=== PATIENT | male | born 1995 | race Caucasian/White ===

== ENCOUNTER 2016-06-30 20:11 | Emergency (ER) | payer OTHER ==
[2016-06-30 20:11] VITALS: BP 131/76; PULSE 91; RESP 16; TEMP 98.8; O2SAT 100
[~2016-06-30 20:11] MED LIST: SERT50 PO
--- NOTE | 2016-06-30 20:45 | PD ---
HPI Chief Complaint: Lump, Cyst, Hernia Time Seen by Provider: 20:45 Travel History International Travel<30 days: No Contact w/Intl Traveler<30days: No Traveled to known affect area: No History of Present Illness HPI 21-year-old male presents to emergency department for evaluation of a palpable lump in his groin area noticed approximately 4 months ago. Patient states it does not hurt. Denies any recent illnesses, fever, or chills. He states he does have cats in the house and has probably sustained several scratches. Denies any testicular lesions. No urinary symptoms. No pelvic or abdominal pain. He states he is otherwise healthy. He has no other symptoms to report. Patient states he does have a primary care provider through his mother's insurance he cannot think of the name of them right now History Past Medical Histgory Medical History: Denies Significant Hx Hx Cancer: No Social History Alcohol Use: No Tobacco Use: No Allergies-Medications (Allergen,Severity, Reaction): Coded Allergies: No Known Allergies (Verified , 06/30/16) Reported Meds & Prescriptions Reported Meds & Active Scripts Active Zoloft (Sertraline HCl) 50 Mg Tab 25 Mg PO DAILY Review of Systems Except as stated in HPI: all other systems reviewed are Neg Physical Exam Narrative GENERAL: Well-nourished, well-developed patient in no acute distress SKIN: Focused skin assessment warm/dry. HEAD: Normocephalic. EYES: No scleral icterus. No injection or drainage. NECK: Supple, trachea midline. No JVD or lymphadenopathy. CARDIOVASCULAR: Regular rate and rhythm without murmurs, gallops, or rubs. RESPIRATORY: Breath sounds equal bilaterally. No accessory muscle use. Abdomen: Abdomen soft, non-tender, nondistended. Positive bowel sounds. No hepato-splenomegaly, or palpable masses. No guarding. There is a 1 cm in diameter palpable, mobile lymph node in the right inguinal area. No erythema or edema. GENITOURINARY: Circumcised. Testes descended bilaterally without evidence of rotation. No lesions or erythema. No urethral discharge. MUSCULOSKELETAL: No cyanosis, or edema. BACK: Nontender without obvious deformity. No CVA tenderness. Data Data Last Documented VS Vital Signs Date Time Temp Pulse Resp B/P Pulse Ox O2 Delivery O2 Flow Rate FiO2 06/30/16 20:11 98.8 91 16 131/76 100 Room Air MDM Medical Screen Exam Complete: Yes Emergency Medical Condition: No Differential Diagnosis Inguinal lymphadenopathy versus cat scratch disease versus local reaction versus cancer Narrative Course 21-year-old male presents to the emergency department for evaluation of a palpable lymph node in his right inguinal chain. H otherwise appears well. There is a palpable 1 cm diameter, mobile lymph node noted in this area. Testicular exam is completely benign at this time. I discussed in depth the possible etiologies of this from very benign to very serious to include cancer. He states that he does have a primary care provider and he can follow-up with outpatient. I advised that he call tomorrow which is Friday to schedule an appointment for further evaluation of this. He verbalizes understanding and agrees to follow through with this plan of care. He agrees to return immediately with any acute worsening of symptoms. A medical screening exam was performed: At the time of evaluation the presenting medical condition was determined not to be of an emergent nature. The patient was given the option of receiving additional care, but declined. Patient was given options for additional community resources from which to obtain care. The Patient Has Been advised to seek medical attention for their presenting complaint. The patient has been advised to return to the ER at any time if an emergent condition develops. Primary Impression: Inguinal lymphadenopathy Additional Impression: Encounter for medical screening examination Condition: Stable Anisa Boyle June 30, 2016 20:45
== END 2016-06-30 20:56 | disposition left against medical advice (07) ==
LOC: NEPK 20:11
DX: R59.1 Generalized enlarged lymph nodes (principal)
CPT/HCPCS: 99281

== ENCOUNTER 2017-06-13 09:41 | Inpatient (IN) | payer OTHER ==
[~2017-06-13] VITALS: Ht 172.7 cm; Wt 47.9 kg
[2017-06-13 09:45] VITALS: BP 115/62; PULSE 92; RESP 16; TEMP 97.6; O2SAT 99
--- NOTE | 2017-06-13 10:04 | PD ---
HPI Chief Complaint: Psychiatric Symptoms Time Seen by Provider: 09:50 Travel History International Travel<30 days: No Contact w/Intl Traveler<30days: No Traveled to known affect area: No History of Present Illness HPI 22-year-old male complains of suicide ideation including a plan to inhale helium and attempt to without experience of pain. He reports anxiety attacks. He reports drinking alcohol and using cocaine. Most recent polysubstance abuse was last night. He denies drug abuse otherwise. He reports a history of major depression previously with a suicide attempt including walking to a bridge to jump off of it where he was interrupted. He has no physical complaint. Timing constant. PFSH Past Medical History ADHD: No Depression: Yes Cancer: No Cardiovascular Problems: No Diabetes: No Diminished Hearing: No Endocrine: No Genitourinary: No Headaches: No Hepatitis: No Hiatal Hernia: No Immune Disorder: No Musculoskeletal: No Neurologic: No Psychiatric: Yes (HBS 2013) Reproductive: No Respiratory: No Immunizations Current: Yes Migraines: Yes (OCCASSIONALLY--ADVIL PRN) Seizures: No Thyroid Disease: No Ulcer: No Past Surgical History Joint Replacement: No Oral Surgery: Yes (GUM SURGERY "YEARS AGO") Pacemaker: No Social History Alcohol Use: No Tobacco Use: No Substance Use: Yes (ADMITS TO SMOKING POT YESTERDAY.) Allergies-Medications (Allergen,Severity, Reaction): Coded Allergies: No Known Allergies (Verified Adverse Reaction, Unknown, 06/13/17) Reported Meds & Prescriptions Reported Meds & Active Scripts Active Zoloft (Sertraline HCl) 50 Mg Tab 25 Mg PO DAILY Review of Systems Except as stated in HPI: all other systems reviewed are Neg General / Constitutional: No: Fever Physical Exam Narrative GENERAL: 22 yo M, WNWD, NAD, cooperative Vital Signs Date Time Temp Pulse Resp B/P (MAP) Pulse Ox O2 Delivery O2 Flow Rate FiO2 06/13/17 09:45 97.6 92 16 115/62 (79) 99 SKIN: Warm and dry. HEAD: Atraumatic. Normocephalic. EYES: Pupils equal and round. No scleral icterus. No injection or drainage. ENT: No nasal bleeding or discharge. Mucous membranes pink and moist. NECK: Trachea midline. No JVD. CARDIOVASCULAR: Regular rate and rhythm. RESPIRATORY: No accessory muscle use. Clear to auscultation. Breath sounds equal bilaterally. GASTROINTESTINAL: Abdomen soft, non-tender, nondistended. Hepatic and splenic margins not palpable. MUSCULOSKELETAL: Extremities without clubbing, cyanosis, or edema. No obvious deformities. NEUROLOGICAL: Awake and alert. No obvious cranial nerve deficits. Motor grossly within normal limits. Five out of 5 muscle strength in the arms and legs. Normal speech. PSYCHIATRIC: Patient reports suicidal ideation. Positive polysubstance abuse. Data Data Last Documented VS Vital Signs Date Time Temp Pulse Resp B/P (MAP) Pulse Ox O2 Delivery O2 Flow Rate FiO2 06/13/17 10:25 16 06/13/17 09:45 97.6 92 115/62 (79) 99 Orders Orders Complete Blood Count With Diff (06/13/17 09:55) Comprehensive Metabolic Panel (06/13/17 09:55) Thyroid Stimulating Hormone (06/13/17 09:55) Psych Screen (06/13/17 09:55) Drug Screen, Random Urine (06/13/17 09:55) Alcohol (Ethanol) (06/13/17 09:55) Salicylates (Aspirin) (06/13/17 09:55) Tylenol (Acetaminophen) (06/13/17 09:55) Labs Laboratory Tests Test 06/13/17 10:15 White Blood Count 9.9 TH/MM3 Red Blood Count 4.75 MIL/MM3 Hemoglobin 14.0 GM/DL Hematocrit 40.0 % Mean Corpuscular Volume 84.1 FL Mean Corpuscular Hemoglobin 29.5 PG Mean Corpuscular Hemoglobin Concent 35.0 % Red Cell Distribution Width 13.4 % Platelet Count 233 TH/MM3 Mean Platelet Volume 7.5 FL Neutrophils (%) (Auto) 71.9 % Lymphocytes (%) (Auto) 19.2 % Monocytes (%) (Auto) 6.5 % Eosinophils (%) (Auto) 2.1 % Basophils (%) (Auto) 0.3 % Neutrophils # (Auto) 7.1 TH/MM3 Lymphocytes # (Auto) 1.9 TH/MM3 Monocytes # (Auto) 0.6 TH/MM3 Eosinophils # (Auto) 0.2 TH/MM3 Basophils # (Auto) 0.0 TH/MM3 CBC Comment DIFF FINAL Differential Comment Blood Urea Nitrogen 7 MG/DL Creatinine 1.01 MG/DL Random Glucose 94 MG/DL Total Protein 7.2 GM/DL Albumin 3.9 GM/DL Calcium Level 8.8 MG/DL Alkaline Phosphatase 79 U/L Aspartate Amino Transf (AST/SGOT) 22 U/L Alanine Aminotransferase (ALT/SGPT) 17 U/L Total Bilirubin 0.8 MG/DL Sodium Level 141 MEQ/L Potassium Level 3.7 MEQ/L Chloride Level 106 MEQ/L Carbon Dioxide Level 24.2 MEQ/L Anion Gap 11 MEQ/L Estimat Glomerular Filtration Rate 93 ML/MIN Thyroid Stimulating Hormone 3rd Gen 2.580 uIU/ML Salicylates Level LESS THAN 1.7 MG/DL Urine Opiates Screen NEG Acetaminophen Level LESS THAN 2.0 MCG/ML Urine Barbiturates Screen NEG Urine Amphetamines Screen NEG Urine Benzodiazepines Screen NEG Urine Cocaine Screen POS Urine Cannabinoids Screen NEG Ethyl Alcohol Level LESS THAN 3 MG/DL MDM Medical Decision Making Medical Screen Exam Complete: Yes Emergency Medical Condition: Yes Medical Record Reviewed: Yes Differential Diagnosis Altered mental status/psychosis due to infection/environmental exposure/ metabolic abnormality, polypharmacy, alcohol abuse/intoxication, illicit or prescribed drug abuse, malingering/secondary gain, non-organic psychiatric disease Narrative Course CBC & BMP Diagram 06/13/17 10:15 Total Protein 7.2, Albumin 3.9, Calcium Level 8.8, Alkaline Phosphatase 79, Aspartate Amino Transf (AST/SGOT) 22, Alanine Aminotransferase (ALT/SGPT) 17, Total Bilirubin 0.8 Tox screen positive for cocaine Ruiz Act completed by the undersigned because the patient has suicidal ideation with a plan and has a history of suicide attempt. It seems obvious that if the patient were to stop drinking alcohol and cocaine he would not experience depressed mood like he is however at the moment he has a suicidal plan and the ability to execute it. Diagnosis Primary Impression: Suicidal ideation Additional Impressions: Cocaine abuse Alcohol abuse Planning to commit suicide Admitting Information Admitting Physician Requests: Observation Holden Rodriguez MD June 13, 2017 10:04
[2017-06-13 10:32] LABS: AUTOMATED NEUTROPHIL # 7.1 TH/MM3 (1.8-7.7); BASOPHIL % 0.3 % (0.0-2.0); EOSINOPHIL # 0.2 TH/MM3 (0-0.4); EOSINOPHIL % 2.1 % (0.0-4.0); LYMPH % 19.2 % (9.0-44.0); LYMPHOCYTE # 1.9 TH/MM3 (1.0-4.8); MEAN CELL VOLUME 84.1 FL (80.0-100.0); MEAN CORPUSCULAR HEMOGLOBIN 29.5 PG (27.0-34.0); MEAN PLATELET VOLUME 7.5 FL (7.0-11.0); MONO % 6.5 % (0.0-8.0); MONOCYTE # 0.6 TH/MM3 (0-0.9); NEUT % 71.9 % (16.0-70.0); PLATELET COUNT 233 TH/MM3 (150-450); RED BLOOD COUNT 4.75 MIL/MM3 (4.50-5.90); RED CELL DISTRIBUTION WIDTH 13.4 % (11.6-17.2); WHITE BLOOD COUNT 9.9 TH/MM3 (4.0-11.0)
[2017-06-13 11:02] LABS: ACETAMINOPHEN LESS THAN 2.0 MCG/ML (10.0-30.0); ALBUMIN 3.9 GM/DL (3.4-5.0); ALT (GPT) 17 U/L (12-78); AST (GOT) 22 U/L (15-37); BICARBONATE 24.2 MEQ/L (21.0-32.0); BLOOD UREA NITROGEN 7 MG/DL (7-18); CALCIUM 8.8 MG/DL (8.5-10.1); CHLORIDE 106 MEQ/L (98-107); CREATININE 1.01 MG/DL (0.60-1.30); GLOMERULAR FILTRATION RATE 93 ML/MIN (>89); GLUCOSE,RANDOM 94 MG/DL (74-106); SODIUM (NA) 141 MEQ/L (136-145)
[2017-06-13 11:08] LABS: ALKALINE PHOSPHATASE 79 U/L (45-117); TOTAL BILIRUBIN ADULT 0.8 MG/DL (0.2-1.0); TOTAL PROTEIN 7.2 GM/DL (6.4-8.2)
[2017-06-13 12:18] VITALS: BP 114/80; PULSE 63; RESP 18; TEMP 97.5; O2SAT 99
[2017-06-13] MEDS ORDERED: ALUMINUM/MAGNESIUM/SIMETH 30 ML CUP PO PRN (17:00)
[2017-06-13] MEDS ORDERED: ACETAMINOPHEN 325 MG TAB PO PRN (17:00)
[2017-06-13] MEDS ORDERED: MAGNESIUM HYDROXIDE SUSP 30 ML CUP PO PRN (17:00)
[2017-06-13] MEDS ORDERED: diphenhydrAMINE HCL 50 MG CAP PO PRN (17:00)
[2017-06-13 18:38] VITALS: BP 113/73; PULSE 56; RESP 18; TEMP 97.5; O2SAT 97
[2017-06-13] MEDS: NICOTINE 21 MG/24 HR PATCH T-DERMAL PRN (20:06)
[2017-06-13] MEDS: REMOVE OLD NICODERM (NICOTINE) PATCH T-DERMAL SCH (21:00)
[2017-06-14 06:49] VITALS: BP 106/59; PULSE 68; RESP 16; TEMP 97.7; O2SAT 97
[2017-06-14 09:57] LABS: CHOLESTEROL 100 MG/DL (120-200)
[2017-06-14 10:09] LABS: CHOLESTEROL/ HDL RATIO 1.98 RATIO; HDL CHOLESTEROL 50.3 MG/DL (40.0-60.0); LDL CHOLESTEROL 30 MG/DL (0-99); TRIGLYCERIDES 98 MG/DL (42-150)
[2017-06-14] MEDS ORDERED: hydrOXYzine HCL 50 MG TAB PO PRN (11:15)
[2017-06-14] MEDS ORDERED: diphenhydrAMINE HCL 50 MG CAP PO PRN (11:15)
[2017-06-14] MEDS: ARIPiprazole 5 MG TAB PO SCH (11:47)
--- NOTE | 2017-06-14 12:00 | HHI.HP ---
Provisional Diagnosis Admission Date June 13, 2017 at 16:51 [place] I. Major depressive disorder recurrent severe without psychosis, cocaine abuse, history of alcohol and multiple drug abuse Certification of Person's Competence To Provide Express and Informed Consent I have personally examined Amandeep Lynch , a person being served at [facility] on, June 14, 2017 11:08. Express and informed consent means consent voluntarily given in writing, by a competent person, after sufficient explanation and disclosure of the subject matter involved to enable the person to make a knowing and willful decision without any element of force, fraud, deceit, duress, or other form of constraint or coercion. This person is 18 years of age or older, is not now known to be incompetent to consent to treatment with a guardian advocate, and does not have a health care surrogate or proxy currently making medical treatment decisions. I have found this person to be one of the following: [] Competent to provide express and informed consent, as defined above, for voluntary admission to this facility and is competent to provide express and informed consent for treatment. He/she has the consistent capacity to make well reasoned, willful, and knowing decisions concerning his or her medical or mental health treatment. The person fully and consistently understands the purpose of the admission for examination/placement and is fully capable of personally exercising all rights [place] Incompetent to provide express and informed consent to voluntary admission, and this is incompetent to provide express and informed consent to treatment. The person must be transferred to involuntary status and a petition for a guardian advocate filed with the Circuit Court. []xxxx Refusing to provide express and informed consent to voluntary admission but is competent to provide express and informed consent for treatment. The person must be discharged or transferred to involuntary status. Form shall be completed within 24 hours of a person's arrival at the receiving facility and filed in the clinical record of each person: 1. Admitted on a voluntary basis 2. Permitted to provide express and informed consent to his/her own treatment 3. Allowed to transfer from involuntary to voluntary status 4. Prior to permitting a person to consent to his or her own treatment after having been previously found incompetent to consent to treatment. History of Present Illness Capacity: Lacks Capacity (Patient lacks capacity to sign for hospitalization, patient has capacity to sign for medications and treatment) Psych Chief Complaint: Impression with suicidal ideation intent and plan HPI Patient is a 22-year-old white male comes to the emergency department with a history of suicidal ideation and plan polysubstance abuse, Ruiz acted in the emergency department by Dr. Rodriguez dated June 13, 2017 at 10:04 AM this document reviewed and agreed with. Patient seen and screened in the ED urine toxicology positive for cocaine, alcohol Tylenol and aspirin levels negligible. Review of EMR shows patient was hospitalized twice as a teenager and HBS once in 2011 once in 2014 for depression and suicidal ideation and also substance abuse at that time. At the present time patient sitting quietly in his room, nurse Nessa present throughout session patient is a thin slight slender white male who appears his stated age with fairly thick short cut dark hair. Patient states she has had increased depression over the past month or so. He had been living with his grandparents. His grandfather in April fairly suddenly, his grandmother is becoming quite debilitated to the point where she is now in a [place] facility and he is living by himself and his grandparents home with his PET Monica. Patient states increased depression with occasional panic type attacks with initial and middle and late insomnia, a.m. energy, with decreased energy, though vague crying spells, his appetite is poor though he denies any significant weight loss. He is somewhat anhedonic. There is increased social isolation, decreased concentration and attention, increased irritability and short temperedness. While he denies voices or visions he states is marked increased paranoia especially around strangers. He acknowledges increased use of alcohol and cocaine with past few weeks cocaine use essentially daily. He acknowledges polysubstance abuse in the past partying with friends. He denies any prior detox or rehab or legal issues related to drugs. He denies any past physical or sexual abuse. Of interest he states his mother and father were never he is only now having a relationship with his father. With his father he has been twice subsequent to him and his children by those 2 marriages, and his mother's side his mother was prior to she having him the child by that marriage and she has been after him the child by that marriage. Patient has graduated high school and is not working at [employer]. He has dated girls in the past but not dating anyone now. When asked to take the suicide prole if offered he stated he would take the suicide pill that his suicide plan was to put a bag over his head and inhale helium. Patient states he has been also diagnosed with ulcerative colitis At this time patient does not meet criteria for acute inpatient psychiatric hospitalization of the Ruiz act L the first appointment request second opinion. We will start patient on Remeron 15 mg at at bedtime and Abilify 5 mg in the morning. Need to discuss with this young man perhaps placement, some type of rehab or sober living facility for him. Review of Systems Constitutional: DENIES: Diaphoretic episodes, Fatigue, Fever, Weight gain, Weight loss, Chills, Dizziness, Change in appetite, Night Sweats Endocrine: DENIES: Heat/cold intolerance, Polydipsia, Polyuria, Polyphagia Eyes: DENIES: Blurred vision, Diplopia, Eye inflammation, Eye pain, Vision loss , Photosensitivity, Double Vision Ears, nose, mouth, throat: DENIES: Tinnitus, Hearing loss, Vertigo, Nasal discharge, Oral lesions, Throat pain, Hoarseness, Ear Pain, Running Nose, Epistaxis, Sinus Pain, Toothache, Odynophagia Respiratory: DENIES: Apneas, Cough, Snoring, Wheezing, Hemoptysis, Sputum production, Shortness of breath Cardiovascular: DENIES: Chest pain, Palpitations, Syncope, Dyspnea on Exertion , PND, Lower Extremity Edema, Orthopnea, Claudication Gastrointestinal: DENIES: Abdominal pain, Black stools, Bloody stools, Constipation, Diarrhea, Nausea, Vomiting, Difficulty Swallowing, Anorexia Genitourinary: DENIES: Sexual dysfunction, Urinary frequency, Urinary incontinence, Urgency, Hematuria, Dysuria, Nocturia, Penile Discharge, Testicular Pain, Testicular Swelling Musculoskeletal: DENIES: Joint pain, Muscle aches, Stiffness, Joint Swelling, Back pain, Neck pain Integumentary: DENIES: Abnormal pigmentation, Nail changes, Pruritus, Rash Hematologic/lymphatic: DENIES: Bruising, Lymphadenopathy Immunologic/allergic: DENIES: Eczema, Urticaria Neurologic: DENIES: Abnormal gait, Headache, Localized weakness, Paresthesias, Seizures, Speech Problems, Tremor, Poor Balance Psychiatric: COMPLAINS OF: Anxiety, Depression, Suicidal Ideation Past Psych History Psychological trauma history Recent of patient's grandfather, and placement of grandmother in a facility otherwise patient denies physical or sexual abuse Violence risk - others (6 mos) Low Violence risk - self (6 mos) High Substance Abuse History Drugs/Alcohol past 12 months Patient states recent increased use of alcohol and cocaine past use of marijuana and other drugs Past Family Social History Coded Allergies: No Known Allergies (Verified Allergy, Unknown, 06/13/17) Discontinued Scripts Sertraline Hcl (Zoloft) 50 Mg Tab, 25 MG PO DAILY for Depression Control, #10 TAB 1 Refill Prov:Sean Contreras MD 12/16/14 Current Medications Medications (Trade) Dose Ordered Sig/Tavon Route Start Time Stop Time Status Last Admin (Benadryl) 50 mg HS PRN PO 06/13/17 17:00 (Tylenol) 650 mg Q4H PRN PO 06/13/17 17:00 (Milk Of Magnesia Liq) 30 ml DAILY PRN PO 06/13/17 17:00 06/13/17 20:05 (Mag-Al Plus Susp Liq) 30 ml Q6H PRN PO 06/13/17 17:00 (Habitrol 21 Mg Patch.24 Hr) 1 patch DAILY PRN T-DERMAL 06/13/17 17:00 06/13/17 20:06 Miscellaneous Information 1 HS T-DERMAL 06/13/17 21:00 (Remeron) 15 mg HS PO 06/14/17 21:00 UNV (Abilify) 5 mg DAILY PO 06/14/17 11:00 UNV Family Psych History Patient denies Social History Patient living in grandparents house by himself with his pet dog, states he has had girlfriends in the past, and does socialize with a few friends Patient's Strengths (min. 2) Patient verbal able access healthcare is cooperative Physical Exam Patient medically cleared in the ED at the present time patient sitting quietly in his room is in no acute distress, is in no respiratory distress, no complaints of abdominal pain at this time, patient moving all 4 extremities without difficulty no abnormal motor movements noted Vital Signs Vital Signs Date Time Temp Pulse Resp B/P (MAP) Pulse Ox O2 Delivery O2 Flow Rate FiO2 06/14/17 06:49 97.7 68 16 106/59 (75) 97 06/13/17 12:18 Room Air I/O 06/14/17 06/14/17 06/15/17 08:00 16:00 00:00 Intake Total 240 ml Balance 240 ml Lab Results Test 06/14/17 09:15 Triglycerides Level 98 MG/DL Cholesterol Level 100 MG/DL LDL Cholesterol 30 MG/DL HDL Cholesterol 50.3 MG/DL Cholesterol/HDL Ratio 1.98 RATIO Mental Status Examination Appearance: Appropriate Consciousness: Alert Orientation: x4 Motor Activity: Normal gait Speech: Unremarkable Language: Adequate Fund of Knowledge: Adequate Attention and Concentration: Adequate Memory: Unremarkable Mood: Appropriate Affect: Appropriate Thought Process & Associations: Intact Thought Content: Appropriate Hallucination Type: None Delusion Type: Paranoid (Mildly paranoid around strangers but not to a delusional intensity) Suicidal Ideation: Yes Suicidal Plan: Yes (Patient states he would take the suicide pill) Suicidal Intention: Yes (Patient states to take the suicide pill) Homicidal Ideation: No Homicidal Plan: No Homicidal Intention: No Insight: Fair Judgment: Impulsive Assessment & Plan Problem List: (1) History of polysubstance abuse (2) Major depressive disorder, recurrent severe without psychotic features ICD Codes: F33.2 - Major depressive disorder, recurrent severe without psychotic features (3) Cocaine abuse ICD Codes: F14.10 - Cocaine abuse, uncomplicated Status: Acute (4) Alcohol abuse ICD Codes: F10.10 - Alcohol abuse, uncomplicated Status: Acute Assessment & Plan Estimated LOS 5-7: days patient meets criteria for involuntary psychiatric hospitalization the Ruiz act all the first opinion request second opinion. I feel he does have capacity signed for medication and treatment. We will start patient on Remeron 15 mg at bedtime and Abilify 5 mg in the morning. We will also work on placement issues also taking into consideration his polysubstance abuse history Discharge Planning To be determined Request HC Surrog/Guard Advoc?: No Preet Soriano MD June 14, 2017 12:00
--- NOTE | 2017-06-14 13:36 | PD.CONS ---
HPI Service [facility] Hospitalists Consult Requested By Dr. Preet Soriano Reason for Consult Medical management Primary Care Physician Dr. Roger Hughes Diagnoses: History of Present Illness Mr. Lynch is a 22 y/o WM with hx of depression and polysubstance able. Pt was admitted under Ruiz Act to the inpatient psychiatry unit for suicidal ideation. The pt reports that he has been depressed more so lately since the of his grandfather and the failing tyra of his grandmother whom he lived with. He has been drinking daily and snorting cocaine every day for the past few weeks. He states that he has been having some panic attacks lately and has been considering suicide. He states that he had planning on using helium to kill himself. The pt is currently without any physical complaints. Denies any nausea/vomiting, abd pain, chest pain, diarrhea, constipation, SOB, palpitations , dizziness, headache, weakness or urinary issues. Review of Systems Constitutional: DENIES: Fever, Chills, Dizziness Respiratory: DENIES: Cough, Shortness of breath Cardiovascular: DENIES: Chest pain Gastrointestinal: DENIES: Abdominal pain, Constipation, Diarrhea, Nausea, Vomiting Genitourinary: DENIES: Urgency, Hematuria, Dysuria Integumentary: DENIES: Rash Neurologic: DENIES: Headache Psychiatric: COMPLAINS OF: Depression, Suicidal Ideation, DENIES: Confusion Past Family Social History Past Medical History Depression Polysubstance abuse Past Surgical History Nasal deviated septum repair Reported Medications No home meds Allergies: Coded Allergies: No Known Allergies (Verified Allergy, Unknown, 06/13/17) Family History Noncontributory Social History (+)Alcohol use (+)Cocaine and marijuana use Pt states that he used to smoke but no longer does Physical Exam Vital Signs Vital Signs Date Time Temp Pulse Resp B/P (MAP) Pulse Ox O2 Delivery O2 Flow Rate FiO2 06/14/17 06:49 97.7 68 16 106/59 (75) 97 06/13/17 18:38 97.5 56 18 113/73 (86) 97 06/13/17 17:52 Physical Exam GENERAL: This is a well-nourished, well-developed patient, in no apparent distress. SKIN: No rashes, ecchymoses or lesions. Cool and dry. HEENT: Atraumatic. Normocephalic. No temporal or scalp tenderness. No scleral icterus. Airway patent. NECK: Trachea midline, supple, nontender. CARDIO: Regular. RESP: CTA bilaterally. No wheezes, rales, or rhonchi. ABD: +BS, soft, non-tender, nondistended. No hepato-splenomegaly, or palpable masses. No guarding. EXT: Extremities without clubbing, cyanosis, or edema. NEURO: Awake and alert. Motor and sensory grossly within normal limits. Normal speech. Laboratory Laboratory Tests Test 06/14/17 09:15 Triglycerides Level 98 Cholesterol Level 100 LDL Cholesterol 30 HDL Cholesterol 50.3 Cholesterol/HDL Ratio 1.98 Result Diagram: 06/13/17 1015 06/13/17 1015 Assessment and Plan Problem List: (1) Major depressive disorder, recurrent severe without psychotic features ICD Codes: F33.2 - Major depressive disorder, recurrent severe without psychotic features Status: Chronic Plan: Major Depression Suicidal ideation Polysubstance abuse - Pt is a 22 y/o male with depression and polysubstance abuse who was admitted to [facility] Psych under Ruiz Act for suicidal ideation - Pt has been started on Abilify and Remeron - Discussed alcohol and substance abuse cessation. - Substance and alcohol abuse counseling. - No reported hx of withdrawal symptoms/DTs - Management per Psychiatry (2) Suicidal ideation ICD Codes: R45.851 - Suicidal ideations Status: Acute (3) Cocaine abuse ICD Codes: F14.10 - Cocaine abuse, uncomplicated Status: Acute (4) Alcohol abuse ICD Codes: F10.10 - Alcohol abuse, uncomplicated Status: Acute Brittnee Zapata June 14, 2017 13:36 Cuong Montemayor MD June 14, 2017 17:33
[2017-06-14 18:31] VITALS: BP 112/63; PULSE 81; RESP 16; TEMP 98.1; O2SAT 98
[2017-06-14] MEDS: REMOVE OLD NICODERM (NICOTINE) PATCH T-DERMAL SCH (21:00)
[2017-06-14] MEDS: MIRTAZAPINE 15 MG TAB PO SCH (22:05)
[2017-06-15 05:39] VITALS: BP 110/68; PULSE 75; RESP 16; TEMP 97.5; O2SAT 96
[2017-06-15] MEDS: ARIPiprazole 5 MG TAB PO SCH (08:56)
[2017-06-15 12:52] LABS: HEMOGLOBIN A1C 4.9 % (4.3-6.0)
--- NOTE | 2017-06-15 13:34 | HHI.PYPN ---
Subjective Chief Complaint: Impression with suicidal ideation intent and plan Remarks This is a request for second opinion. Admission note was reviewed and I agree with the history. Patient was seen and case was discussed with nursing. Patient is feeling sleepy secondary to the Remeron. We spoke about his drug use and he says he wants to stop after he leaves the hospital. Affect is quite flat. He remains depressed but denies suicidal ideation intent or plan. Largely seclusive to self Mental Status Examination Appearance: Appropriate Consciousness: Alert Orientation: x4 Motor Activity: Normal gait Speech: Unremarkable Language: Adequate Fund of Knowledge: Adequate Attention and Concentration: Adequate Memory: Unremarkable Mood: Appropriate Affect: Appropriate Thought Process & Associations: Intact Thought Content: Appropriate Hallucination Type: None Delusion Type: Paranoid (Mildly paranoid around strangers but not to a delusional intensity) Suicidal Ideation: No Suicidal Plan: No Suicidal Intention: No Homicidal Ideation: No Homicidal Plan: No Homicidal Intention: No Insight: Fair Judgment: Impulsive Results Vitals/IOs Vital Signs Date Time Temp Pulse Resp B/P (MAP) Pulse Ox O2 Delivery O2 Flow Rate FiO2 06/15/17 05:39 97.5 75 16 110/68 (82) 96 06/13/17 12:18 Room Air Assessment & Plan Problem List: (1) History of polysubstance abuse (2) Major depressive disorder, recurrent severe without psychotic features ICD Codes: F33.2 - Major depressive disorder, recurrent severe without psychotic features Status: Chronic (3) Cocaine abuse ICD Codes: F14.10 - Cocaine abuse, uncomplicated Status: Acute (4) Alcohol abuse ICD Codes: F10.10 - Alcohol abuse, uncomplicated Status: Acute Assessment & Plan I agree with the first opinion to continue petition. Criteria include suicidal ideation with plan Justification for Cont. Inpt. Patient would decompensate in a less restrictive setting Request HC Surrog/Guard Advoc?: No Jomar Sprague DO June 15, 2017 13:34
[2017-06-15 17:59] VITALS: BP 110/64; PULSE 78; RESP 16; TEMP 98; O2SAT 98
[2017-06-15] MEDS: REMOVE OLD NICODERM (NICOTINE) PATCH T-DERMAL SCH (21:00)
[2017-06-15] MEDS: MIRTAZAPINE 15 MG TAB PO SCH (21:09)
[2017-06-16 05:48] VITALS: BP 114/73; PULSE 72; RESP 16; TEMP 97.7; O2SAT 97
[2017-06-16] MEDS: ARIPiprazole 5 MG TAB PO SCH (09:35)
--- NOTE | 2017-06-16 13:42 | HHI.PYPN ---
Subjective Chief Complaint: Impression with suicidal ideation intent and plan Remarks Patient is seen in his room with nurse Shanique, chart reviewed, patient compliant medications, patient discussed with nurse. Patient continues depressed stating he will would still take the suicide pill of offered him today. He states he talked with both his mother and father last night. He states his mother would like the hospital [facility]. Father states that he would like to make things better before he is discharged. Patient states he slept better last night he has some increased focus. He so wishes to discuss the possibility of a sober living rehab or hair for a type house. When the counselor Amandeep meet with him. Review of Systems Except as stated in HPI: all other systems reviewed are Neg Mental Status Examination Appearance: Appropriate Consciousness: Alert Orientation: x4 Motor Activity: Normal gait Speech: Unremarkable Language: Adequate Fund of Knowledge: Adequate Attention and Concentration: Adequate Memory: Unremarkable Mood: Appropriate Affect: Appropriate Thought Process & Associations: Intact Thought Content: Appropriate Hallucination Type: None Delusion Type: Paranoid (Mildly paranoid around strangers but not to a delusional intensity) Suicidal Ideation: No Suicidal Plan: No Suicidal Intention: No Homicidal Ideation: No Homicidal Plan: No Homicidal Intention: No Insight: Fair Judgment: Impulsive Results Vitals/IOs Vital Signs Date Time Temp Pulse Resp B/P (MAP) Pulse Ox O2 Delivery O2 Flow Rate FiO2 06/16/17 05:48 97.7 72 16 114/73 (87) 97 06/13/17 12:18 Room Air Intake and Output 06/16/17 06/16/17 06/16/17 07:59 15:59 23:59 Intake Total 120 ml Balance 120 ml Assessment & Plan Problem List: (1) History of polysubstance abuse (2) Major depressive disorder, recurrent severe without psychotic features ICD Codes: F33.2 - Major depressive disorder, recurrent severe without psychotic features Status: Chronic (3) Cocaine abuse ICD Codes: F14.10 - Cocaine abuse, uncomplicated Status: Acute (4) Alcohol abuse ICD Codes: F10.10 - Alcohol abuse, uncomplicated Status: Acute Assessment & Plan Estimated LOS: days patient remains depressed with suicidal ideation and intent , would take the suicide pill daily. Though his affect is slightly improved. He continues to be willing to consider assisted living situation or sober living situation for now continue treatment no change Justification for Cont. Inpt. At this time patient would decompensate if placed in a lower level of care Discharge Planning To be determined Request HC Surrog/Guard Advoc?: No Preet Soriano MD June 16, 2017 13:42
--- NOTE | 2017-06-16 15:36 | PD.TTN ---
Patient Problems 1. Discharge planning 2. Medication compliance 3. Knowledge deficit 4. Lack of coping skills Progress Toward Goals Provider Present: Dr. Maye Soriano Group Spec/RT/OT/[place] Present: MIN Santoro (06/16/17- Pt. was cooperative and pleasant during groups.) Tristan Gauthier June 16, 2017 15:36
[2017-06-16 18:29] VITALS: BP 119/64; PULSE 78; RESP 18; TEMP 97.9; O2SAT 99
[2017-06-16] MEDS: REMOVE OLD NICODERM (NICOTINE) PATCH T-DERMAL SCH (21:00)
[2017-06-16] MEDS: MIRTAZAPINE 15 MG TAB PO SCH (21:11)
[2017-06-16] MEDS: NICOTINE 21 MG/24 HR PATCH T-DERMAL PRN (21:35)
[2017-06-17 04:00] VITALS: BP 113/59; PULSE 73; RESP 15; TEMP 97.4; O2SAT 98
[2017-06-17] MEDS: ARIPiprazole 5 MG TAB PO SCH (08:57)
--- NOTE | 2017-06-17 13:52 | HHI.PYPN ---
Subjective Chief Complaint: Impression with suicidal ideation intent and plan Remarks Patient is seen in day room with nurse Romina, chart reviewed, patient complaint medications, patient discussed with nurse. He states he slept all night last night, the "first time in years". He still remains somewhat sad though his affect is improving his eye contact is improving. He does deny suicidality voices or visions at the present time. Patient scheduled to see a counselor Amandeep this afternoon to discuss placement options Review of Systems Except as stated in HPI: all other systems reviewed are Neg Mental Status Examination Appearance: Appropriate Consciousness: Alert Orientation: x4 Motor Activity: Normal gait Speech: Unremarkable Language: Adequate Fund of Knowledge: Adequate Attention and Concentration: Adequate Memory: Unremarkable Mood: Appropriate Affect: Appropriate Thought Process & Associations: Intact Thought Content: Appropriate Hallucination Type: None Delusion Type: Paranoid (Mildly paranoid around strangers but not to a delusional intensity) Suicidal Ideation: No Suicidal Plan: No Suicidal Intention: No Homicidal Ideation: No Homicidal Plan: No Homicidal Intention: No Insight: Adequate Judgment: Adequate Results Vitals/IOs Vital Signs Date Time Temp Pulse Resp B/P (MAP) Pulse Ox O2 Delivery O2 Flow Rate FiO2 06/17/17 04:00 97.4 73 15 113/59 (77) 98 06/13/17 12:18 Room Air Intake and Output 06/17/17 06/17/17 06/18/17 08:00 16:00 00:00 Intake Total 360 ml Balance 360 ml Assessment & Plan Problem List: (1) History of polysubstance abuse (2) Major depressive disorder, recurrent severe without psychotic features ICD Codes: F33.2 - Major depressive disorder, recurrent severe without psychotic features Status: Chronic (3) Cocaine abuse ICD Codes: F14.10 - Cocaine abuse, uncomplicated Status: Acute (4) Alcohol abuse ICD Codes: F10.10 - Alcohol abuse, uncomplicated Status: Acute Assessment & Plan Estimated LOS: days patient continues to improve, deny suicidality, sleeping better, patient scheduled to meet with Amandeep this afternoon to discuss placement options Justification for Cont. Inpt. At this time patient would decompensate a place to the lower level of care Discharge Planning Will discuss placement options with counselor Amandeep hours after room Request HC Surrog/Guard Advoc?: Preet Moran MD June 17, 2017 13:52
[2017-06-17 18:16] VITALS: BP 112/68; PULSE 66; RESP 18; TEMP 98.8; O2SAT 100
[2017-06-17] MEDS: REMOVE OLD NICODERM (NICOTINE) PATCH T-DERMAL SCH (21:29)
[2017-06-17] MEDS: MIRTAZAPINE 15 MG TAB PO SCH (21:31)
[2017-06-18 06:40] VITALS: BP 121/74; PULSE 79; RESP 19; TEMP 97.7; O2SAT 96
[2017-06-18] MEDS: ARIPiprazole 5 MG TAB PO SCH (08:36)
--- NOTE | 2017-06-18 10:24 | HHI.PYPN ---
Subjective Chief Complaint: Impression with suicidal ideation intent and plan Remarks Patient is seen in the day room with nurse Nessa, chart reviewed, patient complaint medications, patient discussed with nurse. Patient calm and cooperative says he slept well again last night. He denies suicidality voices or visions. He states he talked with Rochelle yesterday and they are researching finding him an appropriate rehab substance abuse program, he states he did talk with his mother she is in agreement with that. At this time patient no longer meets Ruiz criteria will lift Ruiz act allow patient to sign voluntary. We will continue treatment no change Review of Systems Except as stated in HPI: all other systems reviewed are Neg Mental Status Examination Appearance: Appropriate Consciousness: Alert Orientation: x4 Motor Activity: Normal gait Speech: Unremarkable Language: Adequate Fund of Knowledge: Adequate Attention and Concentration: Adequate Memory: Unremarkable Mood: Appropriate Affect: Appropriate Thought Process & Associations: Intact Thought Content: Appropriate Hallucination Type: None Delusion Type: Paranoid (Markedly diminished) Suicidal Ideation: No Suicidal Plan: No Suicidal Intention: No Homicidal Ideation: No Homicidal Plan: No Homicidal Intention: No Insight: Adequate Judgment: Adequate Results Vitals/IOs Vital Signs Date Time Temp Pulse Resp B/P (MAP) Pulse Ox O2 Delivery O2 Flow Rate FiO2 06/18/17 06:40 97.7 79 19 121/74 (90) 96 Intake and Output 06/18/17 06/18/17 06/19/17 08:00 16:00 00:00 Intake Total 240 ml Balance 240 ml Assessment & Plan Problem List: (1) History of polysubstance abuse (2) Major depressive disorder, recurrent severe without psychotic features ICD Codes: F33.2 - Major depressive disorder, recurrent severe without psychotic features Status: Chronic (3) Cocaine abuse ICD Codes: F14.10 - Cocaine abuse, uncomplicated Status: Acute (4) Alcohol abuse ICD Codes: F10.10 - Alcohol abuse, uncomplicated Status: Acute Assessment & Plan Estimated LOS: days Justification for Cont. Inpt. At this time patient would decompensate a place to the lower level of care Discharge Planning Possible referral to rehab facility versus returning to grandparents home Request HC Surrog/Guard Advoc?: No Preet Soriano MD June 18, 2017 10:24
[2017-06-18] MEDS: NICOTINE 21 MG/24 HR PATCH T-DERMAL SCH (10:38)
[2017-06-18 18:15] VITALS: BP 123/68; PULSE 88; RESP 18; TEMP 98.7; O2SAT 100
[2017-06-18] MEDS: REMOVE OLD NICODERM (NICOTINE) PATCH T-DERMAL SCH (21:00)
[2017-06-18] MEDS: MIRTAZAPINE 15 MG TAB PO SCH (21:03)
[2017-06-19 05:36] VITALS: BP 110/63; PULSE 72; RESP 16; TEMP 97.5; O2SAT 98
[2017-06-19] MEDS: NICOTINE 21 MG/24 HR PATCH T-DERMAL SCH (08:37)
[2017-06-19] MEDS: ARIPiprazole 5 MG TAB PO SCH (08:37)
--- NOTE | 2017-06-19 14:46 | HHI.PYPN ---
Subjective Chief Complaint: Impression with suicidal ideation intent and plan Remarks Patient is seen in his room with nurse Nessa, and counselor Naheed, chart reviewed, patient compliant medications, patient discussed with nurse. Patient continues to do well he denies suicidality or homicidality voices or visions. As his sleep continues to improve, he is so willing to go to the [facility] for 30 day rehab program. However that is yet to be arranged. Patient is wanting to be discharged to be with his family. At least for a period of time prior to the [facility]. Patient states she is also willing to take the initiative work of [facility] if he is home for a period of time prior to being admitted there. Thus I will consider discharging patient tomorrow in [place] that he has a bed available we will go directly there if not patient states he will be going to stay with his mother. The does feel any there is some data there to help monitor supervising keep him company. Review of Systems Except as stated in HPI: all other systems reviewed are Neg Mental Status Examination Appearance: Appropriate Consciousness: Alert Orientation: x4 Motor Activity: Normal gait Speech: Unremarkable Language: Adequate Fund of Knowledge: Adequate Attention and Concentration: Adequate Memory: Unremarkable Mood: Appropriate Affect: Appropriate Thought Process & Associations: Intact Thought Content: Appropriate Hallucination Type: None Delusion Type: Paranoid (Markedly diminished) Suicidal Ideation: No Suicidal Plan: No Suicidal Intention: No Homicidal Ideation: No Homicidal Plan: No Homicidal Intention: No Insight: Adequate Judgment: Adequate Results Vitals/IOs Vital Signs Date Time Temp Pulse Resp B/P (MAP) Pulse Ox O2 Delivery O2 Flow Rate FiO2 06/19/17 05:36 97.5 72 16 110/63 (79) 98 Assessment & Plan Problem List: (1) History of polysubstance abuse (2) Major depressive disorder, recurrent severe without psychotic features ICD Codes: F33.2 - Major depressive disorder, recurrent severe without psychotic features Status: Chronic (3) Cocaine abuse ICD Codes: F14.10 - Cocaine abuse, uncomplicated Status: Acute (4) Alcohol abuse ICD Codes: F10.10 - Alcohol abuse, uncomplicated Status: Acute Assessment & Plan Estimated LOS: days patient continues to do good denies suicidality and homicidality voices or visions continues to be willing to go to [facility]. However if there is not available within the next 24-36 hours we will consider allowing patient to be discharged home tomorrow to follow up [facility] from in the community Justification for Cont. Inpt. This time patient would decompensate a place to a lower level of care Discharge Planning Hopefully to follow up with [facility] Request HC Surrog/Guard Advoc?: No Preet Soriano MD June 19, 2017 14:46
[2017-06-19 17:03] VITALS: BP 111/67; PULSE 90; RESP 17; TEMP 97.1; O2SAT 100
[2017-06-19] MEDS: REMOVE OLD NICODERM (NICOTINE) PATCH T-DERMAL SCH (21:00)
[2017-06-19] MEDS: MIRTAZAPINE 15 MG TAB PO SCH (21:24)
[2017-06-20 05:36] VITALS: BP 109/53; PULSE 69; RESP 16; TEMP 97.5; O2SAT 98
[2017-06-20] MEDS: NICOTINE 21 MG/24 HR PATCH T-DERMAL SCH (08:53)
[2017-06-20] MEDS: ARIPiprazole 5 MG TAB PO SCH (08:53)
[2017-06-20] MEDS ORDERED: ARIP1TAB11 PO (10:59)
[2017-06-20] MEDS ORDERED: MIRTA15 PO (10:59)
--- NOTE | 2017-06-20 11:05 | HHI.DS ---
Psychiatry Discharge Summary Inpatient Psychiatric care?: Yes Advance Directive: No Reason Not Provided: refused Mental Health AdvanceDirective: No Health Care Proxy: No Admission Admission Date June 13, 2017 at 16:51 Admission Diagnosis: (1) Alcohol abuse ICD Code: F10.10 - Alcohol abuse, uncomplicated (2) Cocaine abuse ICD Code: F14.10 - Cocaine abuse, uncomplicated (3) Major depressive disorder, recurrent severe without psychotic features ICD Code: F33.2 - Major depressive disorder, recurrent severe without psychotic features Brief History Patient is a 22-year-old white male comes to the emergency department with a history of suicidal ideation and plan polysubstance abuse, Ruiz acted in the emergency department by Dr. Rodriguez dated June 13, 2017 at 10:04 AM this document reviewed and agreed with. Patient seen and screened in the ED urine toxicology positive for cocaine, alcohol Tylenol and aspirin levels negligible. Review of EMR shows patient was hospitalized twice as a teenager and [facility] once in 2011 once in 2014 for depression and suicidal ideation and also substance abuse at that time. At the present time patient sitting quietly in his room, nurse Nessa present throughout session patient is a thin slight slender white male who appears his stated age with fairly thick short cut dark hair. Patient states she has had increased depression over the past month or so. He had been living with his grandparents. His grandfather in April fairly suddenly, his grandmother is becoming quite debilitated to the point where she is now in a mcf[facility] and he is living by himself and his grandparents home with his PET Monica. Patient states increased depression with occasional panic type attacks with initial and middle and late insomnia, a.m. energy, with decreased energy, though vague crying spells, his appetite is poor though he denies any significant weight loss. He is somewhat anhedonic. There is increased social isolation, decreased concentration and attention, increased irritability and short temperedness. While he denies voices or visions he states is marked increased paranoia especially around strangers. He acknowledges increased use of alcohol and cocaine with past few weeks cocaine use essentially daily. He acknowledges polysubstance abuse in the past partying with friends. He denies any prior detox or rehab or legal issues related to drugs. He denies any past physical or sexual abuse. Of interest he states his mother and father were never he is only now having a relationship with his father. With his father he has been twice subsequent to him and his children by those 2 marriages, and his mother's side his mother was prior to she having him the child by that marriage and she has been after him the child by that marriage. Patient has graduated high school and is not working at [employer]. He has dated girls in the past but not dating anyone now. When asked to take the suicide prole if offered he stated he would take the suicide pill that his suicide plan was to put a bag over his head and inhale helium. Patient states he has been also diagnosed with ulcerative colitis At this time patient does not meet criteria for acute inpatient psychiatric hospitalization of the Ruiz act L the first appointment request second opinion. We will start patient on Remeron 15 mg at at bedtime and Abilify 5 mg in the morning. Need to discuss with this young man perhaps placement, some type of rehab or sober living facility for him. Tobacco Use In Past 30 Days: 5 or More Cigarettes/Day Alcohol Use: 4 or More Times Per Week Hospital Course Patient's hospital course was uneventful, his initial isolation paranoia vigilance slowly resolved with his detoxification and cooperation with medication. He became calm cooperative pleasant showing fair insight into his need for sobriety and treatment of his mental health issues along with developing independence from his family of origin. Patient is willing, and his mother agrees, to go to the inpatient program through [facility]. At this time patient is recent maximum benefit of this hospitalization. Patient to be discharged today. He will go with his mother. 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 Then either this afternoon or tomorrow go to [facility] for admission to their inpatient rehab program patient given 1 month supply of his medication. Also recommendation, of course, for absolute sobriety Results Blood Pressure 109 / 53 Vital Signs Date Time Temp Pulse Resp B/P (MAP) Pulse Ox O2 Delivery O2 Flow Rate FiO2 06/20/17 05:36 97.5 69 16 109/53 (71) 98 Laboratory Results Test 06/14/17 09:15 Cholesterol Level 100 MG/DL (120-200) HDL Cholesterol 50.3 MG/DL (40.0-60.0) Hemoglobin A1c 4.9 % (4.3-6.0) LDL Cholesterol 30 MG/DL (0-99) Triglycerides Level 98 MG/DL (42-150) Summary of Procedures None done Pending results at discharge: No Medications # of Antipsychotic meds at D/C: 1 Approp Antipsych med options 1 - Minimum of three failed multiple trials of monotherapy. 2 - Documented plan to taper to monotherapy due to previous use of multiple meds OR cross-taper in progress at D/C. 3 - Documentation of augmentation of Clozapine. 4 - Justification other than those listed in allowable values 1-3, document here : Discharge Discharge Date: June 20, 2017 Discharge Diagnosis: (1) Major depressive disorder, recurrent severe without psychotic features Diagnosis: Principal ICD Code: F33.2 - Major depressive disorder, recurrent severe without psychotic features Status: Chronic (2) Cocaine abuse Diagnosis: Secondary ICD Code: F14.10 - Cocaine abuse, uncomplicated Status: Acute (3) Alcohol abuse Diagnosis: Secondary (Go to [facility] for admission for rehab treatment in this afternoon or tomorrow morning) ICD Code: F10.10 - Alcohol abuse, uncomplicated Status: Acute Pt Condition on Discharge: Stable Discharge Disposition: Discharge Home Discharge Instructions Diet Instructions: As Tolerated, No Restrictions Activities you can perform: Regular-No Restrictions Scheduled Appointment: [facility] Discharge Time > 30 minutes Mental Status Examination Appearance: Appropriate Consciousness: Alert Orientation: x4 Motor Activity: Normal gait Speech: Unremarkable Language: Adequate Fund of Knowledge: Adequate Attention and Concentration: Adequate Memory: Unremarkable Mood: Appropriate Affect: Appropriate Thought Process & Associations: Intact Thought Content: Appropriate Hallucination Type: None Delusion Type: Paranoid (Markedly diminished) Suicidal Ideation: No Suicidal Plan: No Suicidal Intention: No Homicidal Ideation: No Homicidal Plan: No Homicidal Intention: No Insight: Adequate Judgment: Adequate Discharge/Advance Care Plan Health Problems: (1) History of polysubstance abuse (2) Major depressive disorder, recurrent severe without psychotic features (3) Cocaine abuse (4) Alcohol abuse Goals to promote your health * To prevent worsening of your condition and complications * To maintain your health at the optimal level Directions to meet your goals Take your medications as prescribed Follow your dietary instruction Follow activity as directed Keep your appointments as scheduled Take your immunizations and boosters as scheduled If your symptoms worsen call your PCP, if no PCP go to Urgent Care Center or Emergency Room For 02/09 questions related to your inpatient stay or results of tests pending at discharge, please contact Dr. Preet Soriano at Smoking is Dangerous to Your Health. Avoid second hand smoking Preet Soriano MD June 20, 2017 11:05
--- NOTE | 2017-06-21 15:53 | PD.TTN ---
Patient Problems 1. Discharge planning 2. Medication compliance 3. Knowledge deficit 4. Lack of coping skills Progress Toward Goals Provider Present: Dr. Maye Soriano Provider Input: 06/18/17 patient is open to treatment for his substance abuse he has medications started which will be titrated throughout week Psychiatric Counselors Present: Mallorie Osorio LCSW Psych Therapist Input: 06/18/17 patient has improved and showing some insight and motivattion for ongoing treatment Group Spec/RT/OT/COPELAND Present: MIN Santoro (06/16/17- Pt. was cooperative and pleasant during groups.) Group Spec/RT/OT/COPELAND Input: 06/18/17 he is quiet and attends groups Mallorie Osorio LCSW June 21, 2017 15:53
== END 2017-06-20 14:45 | disposition home or self-care (01) | DRG 885 ==
LOC: NEPD 09:41 → NEDA 16:51 → H260 17:59
PROVIDERS: ADMIT Psychiatry & Neurology Psychiatry; ATTEND Psychiatry & Neurology Psychiatry
DX: F33.2 Major depressive disorder, recurrent severe without psychotic features (principal); R45.851 Suicidal ideations; F14.10 Cocaine abuse, uncomplicated; F10.10 Alcohol abuse, uncomplicated; F12.90 Cannabis use, unspecified, uncomplicated; Z87.891 Personal history of nicotine dependence; Z91.5 Personal history of self-harm
CPT/HCPCS: 80053; 80061; 80307; 83036; 84443; 85025; 99285; Q0163